=== PATIENT | female | born 1985 | race Caucasian/White ===

== ENCOUNTER 2016-05-13 23:40 | Emergency (ER) | payer OTHER ==
--- NOTE | 2016-05-13 23:44 | PDOC ---
History of Present Illness - General Stated Complaint: MIGHT BE HAVING A MISCARRIAGE Time Seen by Provider: 05/13/16 23:42 - History of Present Illness Initial Comments: This 30-year-old woman with no significant past medical history presents with vaginal bleeding for the last 3 days. Patient denies pain, lightheadedness, weakness or nausea/vomiting. She states that she thinks her last menstrual period should have been on April 29. One week ago, she performed in at home urine test twice. The first test was negative, the second test was positive. 3 days ago, she began to have menstrual flow, slightly heavier than normal. Patient states that she underwent approximately 8 months ago but periods of been normal since then. Past History - Past Medical History Allergies/Adverse Reactions: Allergies Allergy/AdvReac Type Severity Reaction Status Date / Time No Known Allergies Allergy Verified 05/13/16 23:44 Home Medications: Ambulatory Orders NK [No Known Home Medication] 05/13/16 Asthma: No Cancer: No Cardiac Disorders: No Diabetes: No HTN: No Seizures: No Thyroid Disease: No - Psycho/Social/Smoking Cessation Hx Smoking History: Never smoked Have you smoked in the past 12 months: No Hx Alcohol Use: No Drug/Substance Use Hx: No Hx Substance Use Treatment: No Review of Systems - Review of Systems Able to Perform ROS?: Yes Comments:: 12 point review of systems is negative except for what is noted in the history of present illness *Physical Exam - Physical Exam Comments: GENERAL: The patient is awake, alert, and fully oriented, in no acute distress. Vital signs as noted. HEAD: Normal with no signs of trauma. EYES: Pupils equal, round and reactive to light, extraocular movements intact, sclera anicteric, conjunctiva clear with no pallor. ENT: moist mucous membranes. Ears normal, nares patent, oropharynx clear without exudates. NECK: Normal range of motion, supple without lymphadenopathy, JVD, or masses. LUNGS: Breath sounds equal, clear to auscultation bilaterally. No wheeze/ crackles. HEART: Regular rate and rhythm, normal S1 and S2 without murmur or rub. ABDOMEN: Soft/nontender/nondistended. BS wnl. No guarding or rebound. No palpable masses. No hepatosplenomegaly. EXTREMITIES: Normal range of motion, no edema. No clubbing or cyanosis. No cords, erythema, or tenderness. NEUROLOGICAL: Cranial nerves II through XII grossly intact. Normal speech, normal gait. PSYCH: Normal mood, normal affect. SKIN: Warm, Dry, normal turgor, no rashes or lesions noted. 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 She should return to the emergency room if she develops severe pain or vomiting, or if lightheadedness/weakness occurs. *DC/Admit/Observation/Transfer Diagnosis at time of Disposition: Vaginal bleeding - Discharge Dispostion Disposition: HOME Condition at time of disposition: Stable - Patient Instructions Printed Discharge Instructions: DI for Abnormal Uterine Bleeding Additional Instructions: return to ER if you persistent heavy bleeding/pain/lightheadedness followup with your personnel clerks supervisor within 2-3 days
[2016-05-13 23:56] VITALS: BP 146/88; PULSE 94; TEMP 98; BMI 26.5
== END 2016-05-14 00:16 | disposition home or self-care (01) ==
LOC: FER 23:40
DX: N93.9 Abnormal uterine and vaginal bleeding, unspecified (principal)
CPT/HCPCS: 84703; 99281-25

== ENCOUNTER 2017-05-30 13:50 | Emergency (ER) | payer OTHER ==
--- NOTE | 2017-05-30 14:07 | PDOC ---
Rapid Medical Evaluation Chief Complaint: Injury Time Seen by Provider: 05/30/17 14:05 Medical Evaluation: Allergies Allergy/AdvReac Type Severity Reaction Status Date / Time No Known Allergies Allergy Verified 05/13/16 23:44 05/30/17 14:06 The patient presents with a chief complaint of: fall I have performed a brief in-person evaluation of this patient. Pertinent physical exam findings: vss, bruises, ambulatory I have ordered the following: urine , motrin The patient will proceed to the ED for further evaluation.
[2017-05-30 14:12] VITALS: BP 146/100; PULSE 69; TEMP 98.7; BMI 28.3
[2017-05-30] MEDS ORDERED: IBUPROFEN 400 MG TABLET (FP) PO ONE ×2 (14:34→14:43)
--- NOTE | 2017-05-30 14:38 | PDOC ---
History of Present Illness - General Chief Complaint: Injury Stated Complaint: FALL Time Seen by Provider: 05/30/17 14:05 History Source: Patient - History of Present Illness Occurred: reports: this morning Pain Location: reports: back, lower extremity, upper extremity Past History - Past Medical History Allergies/Adverse Reactions: Allergies Allergy/AdvReac Type Severity Reaction Status Date / Time No Known Allergies Allergy Verified 05/30/17 14:06 Home Medications: Ambulatory Orders NK [No Known Home Medication] 05/13/16 Asthma: No Cancer: No Cardiac Disorders: No COPD: No Diabetes: No HTN: Yes Seizures: No Thyroid Disease: No - Suicide/Smoking/Psychosocial Hx Smoking History: Never smoked Have you smoked in the past 12 months: No Hx Alcohol Use: No Drug/Substance Use Hx: No Substance Use Type: None Hx Substance Use Treatment: No Review of Systems - Review of Systems ABD/GI: No: Nausea, Vomiting : Yes: See HPI Musculoskeletal: Yes: Back Pain, Joint Pain. No: Joint Swelling, Neck Pain Neurological: No: Headache, Weakness, Dizziness *Physical Exam - Vital Signs Last Vital Signs Temp Pulse Resp BP Pulse Ox 98.7 F 69 18 146/100 100 05/30/17 14:06 05/30/17 14:06 05/30/17 14:06 05/30/17 14:06 05/30/17 14:06 - Physical Exam General Appearance: Yes: Appropriately Dressed. No: Apparent Distress HEENT: positive: Normal Voice Neck: positive: Supple. negative: Tender Respiratory/Chest: positive: Lungs Clear, Normal Breath Sounds. negative: Chest Tender, Respiratory Distress Cardiovascular: positive: Regular Rate, S1, S2 Gastrointestinal/Abdominal: positive: Soft. negative: Tender Musculoskeletal: positive: Normal Inspection, Vertebral Tenderness (to mid thoracic) Extremity: positive: Tender (to R shoulder/arm, no swelling/deformity, FROMI, NVI), Other (abrasions to b/l knee without joint swelling/deformity, FROMI b/l and able to ambulate) Integumentary: positive: Dry, Warm Neurologic: positive: Fully Oriented, Alert, Normal Mood/Affect ED Treatment Course - RADIOLOGY Radiology Studies Ordered: Category Date Time Status HUMERUS-RIGHT [RAD] Stat Radiology 05/30/17 14:34 Ordered SHOULDER-RIGHT [RAD] Stat Radiology 05/30/17 14:34 Ordered SPINE-LUMBAR SACRAL [RAD] Stat Radiology 05/30/17 14:33 Ordered SPINE-THORACIC [RAD] Stat Radiology 05/30/17 14:33 Ordered Medical Decision Making - Medical Decision Making 05/30/17 14:35 31-year-old female, no significant history here with multiple injuries after fall down steps this a.m. at home. Now complaining of pain to back, right upper extremity and bilateral knees. Did not hit head or lose consciousness and no headache, dizziness, or blurry vision. Has been able to ambulate with no lower extremity weakness, saddle anesthesia or bowel or bladder incontinence. Denies neck, chest or abdominal pain. Patient well-appearing and stable with no evidence of serious injuries at this time but will x-ray back and right upper extremity given degree of pain. Anticipate discharge with pain control 05/30/17 15:48 Xrayss negative for fracture per radiology. Patient discharged with over-the- counter pain control. *DC/Admit/Observation/Transfer Diagnosis at time of Disposition: Back sprain, Arm sprain Knee abrasion Qualifiers: Encounter type: initial encounter Laterality: unspecified laterality Qualified Code(s): S80.219A - Abrasion, unspecified knee, initial encounter Fall Qualifiers: Encounter type: initial encounter Qualified Code(s): W19.XXXA - Unspecified fall, initial encounter - Discharge Dispostion Disposition: HOME Condition at time of disposition: Good - Referrals Referrals: Tony Quintanilla MD [Primary Care Provider] - - Patient Instructions Printed Discharge Instructions: Sprain Additional Instructions: Xrays were negative for fracture. Take Motrin or Tylenol as needed and follow- up with your PMD if pain persists - Post Discharge Activity Forms/Work/School Notes: Back to Work
== END 2017-05-30 15:56 | disposition home or self-care (01) ==
LOC: JERFT 13:50
DX: S80.219A Abrasion, unspecified knee, initial encounter (principal); S29.012A Strain of muscle and tendon of back wall of thorax, initial encounter; S46.911A Strain of unspecified muscle, fascia and tendon at shoulder and upper arm level, right arm, initial encounter; W10.9XXA Fall (on) (from) unspecified stairs and steps, initial encounter; Y93.89 Activity, other specified; Y92.9 Unspecified place or not applicable
CPT/HCPCS: 72070-TC-FY; 72100-TC-FY; 73030-TC-RT-FY; 73060-TC-RT-FY; 84703; 99281-25

== ENCOUNTER 2017-07-09 15:29 | Emergency (ER) | payer OTHER ==
[2017-07-09 15:33] VITALS: BP 137/90; PULSE 80; TEMP 99; BMI 28.3
--- NOTE | 2017-07-09 16:04 | PDOC ---
History of Present Illness - General History Source: Patient Exam Limitations: No Limitations - History of Present Illness Initial Comments: 07/09/17 16:16 History of Present illness: The patient is a 31 year old female presents to the emergency department complaining of throat pain since 7 days ago. The patient reports she has noticed dots on the back of her throat. The patient reports taking cold medication, halls, and drinking tea without relief. The patient denies taking any medication or home remedies today. The patient denies any contact with sick family members or peers. Denies symptoms of cough, nausea, vomiting. Denies symptoms of diarrhea, constipation, dysuria, frequency or urgency to urinate. Allergies: None reported Past Medical History: Borderline elevated blood pressure. Social History: None reported PCP: None reported on file. <Brigette Rivas - Last Filed: 07/09/17 16:16> <Hardik García - Last Filed: 07/09/17 17:03> - General Chief Complaint: Sore Throat Stated Complaint: SORE THROAT Time Seen by Provider: 07/09/17 15:58 Past History <Brigette Rivas - Last Filed: 07/09/17 16:16> - Past Medical History Asthma: No Cancer: No Cardiac Disorders: No COPD: No Diabetes: No HTN: Yes Seizures: No Thyroid Disease: No - Suicide/Smoking/Psychosocial Hx Smoking History: Never smoked Have you smoked in the past 12 months: No Information on smoking cessation initiated: No Hx Alcohol Use: No Drug/Substance Use Hx: No Substance Use Type: None Hx Substance Use Treatment: No <Hardik García - Last Filed: 07/09/17 17:03> - Past Medical History Allergies/Adverse Reactions: Allergies Allergy/AdvReac Type Severity Reaction Status Date / Time No Known Allergies Allergy Verified 07/09/17 15:30 Home Medications: Ambulatory Orders Ibuprofen 600 mg PO QID PRN #20 tablet 07/09/17 Penicillin V Potassium [Pen Vee K -] 500 mg PO BID #20 tablet 07/09/17 Review of Systems - Review of Systems Able to Perform ROS?: Yes Comments:: 07/09/17 16:16 CONSTITUTIONAL: Absent: fever, no chills, no fatigue EYES: Absent: visual changes ENT: (+) Throat pain. Absent: ear pain, CARDIOVASCULAR: Absent: chest pain, no palpitations RESPIRATORY: Absent: cough, no SOB GI: Absent: abdominal pain, no nausea, no vomiting, no constipation, no diarrhea GENITOURINARY: Absent: dysuria, no frequency, no hematuria MUSKULOSKELETAL: Absent: back pain, no arthralgia, no myalgia SKIN: Absent: rash NEURO: Absent: headache <Brigette Rivas - Last Filed: 07/09/17 16:16> *Physical Exam - Vital Signs Last Vital Signs Temp Pulse Resp BP Pulse Ox 99 F 80 16 137/90 100 07/09/17 15:30 07/09/17 15:30 07/09/17 15:30 07/09/17 15:30 07/09/17 15:30 - Physical Exam Comments: 07/09/17 16:16 GENERAL: Well-appearing, well-nourished. No apparent distress. HEENT: (+) Throat is mild injected, no exudate, no swelling or masses. (+) No palpable adenopathy in the cervical region. Normocephalic, atraumatic. PERRL, EOM intact. CARDIOVASCULAR: No heart murmurs Normal S1, S2. Regular rate and rhythm. PULMONARY: Clear Clear to auscultation bilaterally. ABDOMEN: Soft, non-distended, non-tender. EXTREMITIES: Normal ROM in all four extremities. No gross deformities. SKIN: Warm, dry. No rash NEUROLOGICAL: No focal neurological deficits. <Brigette Rivas - Last Filed: 07/09/17 16:16> - Vital Signs Last Vital Signs Temp Pulse Resp BP Pulse Ox 99 F 80 16 137/90 100 07/09/17 15:30 07/09/17 15:30 07/09/17 15:30 07/09/17 15:30 07/09/17 15:30 <Hardik García - Last Filed: 07/09/17 17:03> Medical Decision Making - Medical Decision Making 07/09/17 16:56 Positive strep screen. Penicillin prescribed. Follow-up primary physician <Hardik García - Last Filed: 07/09/17 17:03> *DC/Admit/Observation/Transfer - Attestations Scribe Attestion: 07/09/17 16:17 Documentation prepared by Brigette Rivas, acting as medical assistant ob gyn for Hardik García MD. <Brigette Rivas - Last Filed: 07/09/17 16:16> - Discharge Dispostion Admit: No <Hardik García - Last Filed: 07/09/17 17:03> Diagnosis at time of Disposition: Strep throat - Discharge Dispostion Disposition: HOME Condition at time of disposition: Stable - Prescriptions Prescriptions: Ibuprofen 600 mg PO QID PRN #20 tablet PRN Reason: Pain Penicillin V Potassium [Pen Vee K -] 500 mg PO BID #20 tablet - Patient Instructions Printed Discharge Instructions: DI for Strep Throat - Post Discharge Activity Forms/Work/School Notes: Back to Work
[2017-07-09] MEDS ORDERED: AMOXICILLIN 250 MG CAPSULE PO ONE (17:01)
[2017-07-09] MEDS ORDERED: IBUPROFEN 400 MG TABLET (FP) PO ONE ×2 (17:02→17:03)
[2017-07-09] MEDS ORDERED: AMOXICILLIN 250 MG CAPSULE ONE (17:03)
== END 2017-07-09 17:15 | disposition home or self-care (01) ==
LOC: FER 15:29
DX: J02.0 Streptococcal pharyngitis (principal); I10 Essential (primary) hypertension
CPT/HCPCS: 87070; 87077; 87430; 99283-25

== ENCOUNTER 2018-09-19 20:18 | Emergency (ER) | payer OTHER ==
[2018-09-19] MEDS ORDERED: IBUPROFEN 600 MG TABLET (FP) PO ONE ×2 (20:25→20:33)
--- NOTE | 2018-09-19 20:25 | PDOC ---
Rapid Medical Evaluation Time Seen by Provider: 09/19/18 20:23 Medical Evaluation: Allergies Allergy/AdvReac Type Severity Reaction Status Date / Time No Known Allergies Allergy Verified 07/09/17 15:30 09/19/18 20:23 I have performed a brief in-person evaluation of this patient. The patient presents with a chief complaint of: Right ankle pain x2 days. Pertinent physical exam findings: No swelling. No bony deformity, tenderness, crepitus or step-off to RLE. Ambulatory. I have ordered the following: [email or web address] The patient will proceed to the ED for further evaluation. Discharge Disposition - Diagnosis Ankle pain, right - Referrals - Patient Instructions - Post Discharge Activity
[2018-09-19 20:27] VITALS: BP 125/77; PULSE 89; TEMP 98.5; BMI 28.1
--- NOTE | 2018-09-19 20:57 | PDOC ---
History of Present Illness - General Chief Complaint: Pain Stated Complaint: ANKLE PAIN Time Seen by Provider: 09/19/18 20:23 History Source: Patient - History of Present Illness Initial Comments: 09/19/18 20:44 Complaint: Right ankle injury Patient 32-year-old female, no medical problems who states 3 days ago when her son fell, she was running and twisted her right ankle which continues to bother her. She states the ankle had been bothering her before. Patient is ambulatory. GENERAL/CONSTITUTIONAL: No fever, weakness. dizziness HEAD, EYES, EARS, NOSE AND THROAT: No change in vision. No ear pain or discharge. No sore throat. CARDIOVASCULAR: No chest pain RESPIRATORY: No shortness of breath or cough GASTROINTESTINAL: No pain, nausea, vomiting, diarrhea or constipation GENITOURINARY: No dysuria MUSCULOSKELETAL: No neck or back pain, + and ankle SKIN: No rash NEUROLOGIC: No headache, vertigo, loss of consciousness, or loss of sensation. GENERAL: The patient is awake, alert, and fully oriented, in no acute distress. HEAD: Normal with no signs of trauma. EYES: Pupils equal, round and reactive to light, sclera anicteric, conjunctiva clear. ENT: pharynx: no erythema, no exudate, uvula midline NECK: supple CHEST: clear, nontender, rr ABD: soft, nontender BACK: no tenderness or signs of injury EXTREMITIES: Right ankle mild tenderness, no swelling, good range of motion, neurovascular intact. Rest of extremities normal range of motion, no edema. NEUROLOGICAL: Normal speech, normal gait. SKIN: Warm, Dry Past History - Past Medical History Allergies/Adverse Reactions: Allergies Allergy/AdvReac Type Severity Reaction Status Date / Time No Known Allergies Allergy Verified 09/19/18 20:27 Home Medications: Ambulatory Orders NK [No Known Home Medication] 09/19/18 Asthma: No Cancer: No Cardiac Disorders: No COPD: No Diabetes: No HTN: Yes (borderline) Seizures: No Thyroid Disease: No - Suicide/Smoking/Psychosocial Hx Smoking History: Never smoked Have you smoked in the past 12 months: No Hx Alcohol Use: No Drug/Substance Use Hx: No Substance Use Type: None Hx Substance Use Treatment: No *Physical Exam - Vital Signs Last Vital Signs Temp Pulse Resp BP Pulse Ox 98.5 F 89 18 125/77 99 09/19/18 20:25 09/19/18 20:25 09/19/18 20:25 09/19/18 20:25 09/19/18 20:25 Procedures - Splinting Splint Location: Right: Ankle Pre-Made Type: velcro Post-Proc Neuro Vasc Exam: normal Ashish Bandage: no Complications: No ED Treatment Course - RADIOLOGY Radiology Studies Ordered: Category Date Time Status ANKLE & FOOT-RIGHT* [RAD] Stat Radiology 09/19/18 20:31 Ordered - Medications Given in the ED: ED Medications Discontinued Medications Generic Name Dose Route Start Last Admin Trade Name Sandy PRN Reason Stop Dose Admin Ibuprofen 600 mg 09/19/18 20:25 09/19/18 20:35 Motrin - PO 09/19/18 20:26 600 mg ONCE ONE Administration Medical Decision Making - Medical Decision Making 09/19/18 20:58 Healthy 32-year-old female with right ankle injury, ambulatory complaining of pain, patient will get x-ray, Motrin X-ray shows no acute findings. Discussed issues, findings, results, applicable medications and treatments and follow-up. All these were understood and all questions were answered 09/19/18 21:53 *DC/Admit/Observation/Transfer Diagnosis at time of Disposition: Right ankle sprain Qualifiers: Encounter type: initial encounter Involved ligament of ankle: other ligament Qualified Code(s): S93.491A - Sprain of other ligament of right ankle, initial encounter - Discharge Dispostion Disposition: HOME Condition at time of disposition: Stable - Referrals Referrals: Tony Quintanilla MD [Primary Care Provider] - Tam Treadwell MD [Staff Physician] - - Patient Instructions Printed Discharge Instructions: DI for Ankle Sprain Additional Instructions: Elevate, wear splint Motrin 600 mg every 6 hours for pain. Call the orthopedist tomorrow - Post Discharge Activity
== END 2018-09-19 21:58 | disposition home or self-care (01) ==
LOC: JERFT 20:18
PROC: 2W3QX1Z Immobilization of Right Lower Leg using Splint (ICD-10-PCS; principal; 2018-09-19)
DX: S93.491A Sprain of other ligament of right ankle, initial encounter (principal); X50.1XXA Overexertion from prolonged static or awkward postures, initial encounter; Y93.02 Activity, running; Y92.89 Other specified places as the place of occurrence of the external cause; Y99.8 Other external cause status
CPT/HCPCS: 73610-TC-RT-FY; 73630-TC-RT-FY; 99281-25

== ENCOUNTER 2020-09-08 12:45 | Emergency (ER) | payer OTHER ==
[2020-09-08 12:51] VITALS: PULSE 99; TEMP 97; BMI 27.4
[2020-09-08 13:53] LABS: URINE APPEARANCE CLEAR; URINE BILIRUBIN NEGATIVE (NEGATIVE); URINE COLOR YELLOW; URINE GLUCOSE (UA) NEGATIVE (NEGATIVE); URINE KETONE NEGATIVE (NEGATIVE); URINE LEUK ESTERASE NEGATIVE (NEGATIVE); URINE NITRITE NEGATIVE (NEGATIVE); URINE PROTEIN NEGATIVE (NEGATIVE); URINE UROBILINOGEN 0.2 mg/dL (0.2-1.0)
[2020-09-08 14:01] LABS: HCG,QUALITATIVE URINE Negative
[2020-09-08 14:20] LABS: BASO % 1.2 % (0-2.0); EOS % 1.2 % (0-4.5); HEMOGLOBIN 11.8 GM/dL (10.7-15.3); LYMPH % 29.6 % (8-40); MCH 28.3 pg (25.7-33.7); MCHC 33.8 g/dl (32.0-36.0); MONO % 11.2 % (3.8-10.2); NEUT % 56.8 % (42.8-82.8); PLATELET COUNT 302 10^3/uL (134-434); RBC 4.16 M/mm3 (3.60-5.2); RDW 14.5 % (11.6-15.6); WHITE BLOOD COUNT 4.2 K/mm3 (4.0-10.0)
[2020-09-08 14:32] LABS: CHLORIDE 104 mmol/L (98-107); SODIUM 137 mmol/L (136-145)
[2020-09-08 14:34] LABS: CALCIUM 8.4 mg/dL (8.5-10.1)
[2020-09-08 14:35] LABS: ALBUMIN 3.7 g/dl (3.4-5.0); ANION GAP 7 MMOL/L (8-16); CO2 26 mmol/L (21-32); GLUCOSE,RANDOM 96 mg/dL (74-106)
[2020-09-08 14:36] LABS: BLOOD UREA NITROGEN 8.3 mg/dL (7-18)
[2020-09-08 14:38] LABS: CREATININE 0.6 mg/dL (0.55-1.3); SGOT/AST 20 U/L (15-37); SGPT/ALT 24 U/L (13-61)
[2020-09-08 14:40] LABS: BILIRUBIN,TOTAL 0.3 mg/dL (0.2-1); TOT PROT 7.4 g/dl (6.4-8.2)
[2020-09-08 14:41] LABS: ALK PHOS 62 U/L (45-117)
[2020-09-08 15:20] VITALS: BP 138/98
== END 2020-09-08 15:10 | disposition home or self-care (01) ==
LOC: JER 12:45
DX: R42 Dizziness and giddiness (principal)
CPT/HCPCS: 36415; 71046-TC-FY; 80053; 81003; 84484; 84703; 85025; 93005; 93010; 99285-25

== ENCOUNTER 2023-04-17 15:21 | Emergency (ER) | payer OTHER ==
[2023-04-17 15:34] VITALS: TEMP 98.2; BMI 30.2
[2023-04-17 16:50] LABS: BASO % 0.9 % (0-2.0); EOS % 0.9 % (0-4.5); HEMATOCRIT 33.7 % (32.4-45.2); HEMOGLOBIN 11.5 GM/dL (10.7-15.3); LYMPH % 39.1 % (8-40); MCH 29.2 pg (25.7-33.7); MEAN PLT VOLUME 7.1 fl (7.5-11.1); MONO % 8.3 % (3.8-10.2); NEUT % 50.8 % (42.8-82.8); PLATELET COUNT 369 10^3/uL (134-434); RBC 3.92 M/mm3 (3.60-5.2); RDW 13.5 % (11.6-15.6); WHITE BLOOD COUNT 5.6 K/mm3 (4.0-10.0)
[2023-04-17 16:52] LABS: EPI CELLS 9 /uL (0-25.1); HYALINE CASTS 0 /uL (0-3.1); PH,URINE 7.5 (5.0-8.0); URINE APPEARANCE CLEAR; URINE BACTERIA 14 /uL (0-1359); URINE BILIRUBIN NEGATIVE (NEGATIVE); URINE COLOR YELLOW; URINE GLUCOSE (UA) NEGATIVE (NEGATIVE); URINE KETONE NEGATIVE (NEGATIVE); URINE LEUK ESTERASE NEGATIVE (NEGATIVE); URINE NITRITE NEGATIVE (NEGATIVE); URINE PROTEIN NEGATIVE (NEGATIVE); URINE RBC 1078 /uL (0-23.9); URINE WBC 4 /uL (0-25.8)
[2023-04-17 16:56] LABS: INR 1.13 (0.83-1.09); PROTHROMBIN TIME (PATIENT) 13.1 SEC (9.7-13.0)
[2023-04-17 16:59] LABS: ACTIVATED PTT 29.5 SECONDS (25.2-36.5)
[2023-04-17 17:09] LABS: POTASSIUM 4.6 mmol/L (3.5-5.1)
[2023-04-17 17:11] LABS: ALBUMIN 3.3 g/dl (3.4-5.0); CALCIUM 8.7 mg/dL (8.5-10.1)
[2023-04-17 17:12] LABS: BLOOD UREA NITROGEN 14.1 mg/dL (7-18)
[2023-04-17 17:15] LABS: CREATININE 0.6 mg/dL (0.55-1.3)
[2023-04-17 17:17] LABS: BILIRUBIN,TOTAL 0.2 mg/dL (0.2-1); TOT PROT 7.4 g/dl (6.4-8.2)
[2023-04-17 20:03] VITALS: BP 118/75; PULSE 80; RESP 19
== END 2023-04-17 20:03 | disposition home or self-care (01) ==
LOC: JER 15:21
DX: N93.8 Other specified abnormal uterine and vaginal bleeding (principal); N93.9 Abnormal uterine and vaginal bleeding, unspecified; R10.9 Unspecified abdominal pain
CPT/HCPCS: 36415; 76830-TC; 80053; 81003; 84703; 85025; 85610; 85730; 86850; 86900; 86901; 87077; 87086; 99284-25